=== PATIENT | female | born 1980 ===

== ENCOUNTER 2024-07-29 12:15 | Inpatient (IN) | payer OTHER ==
[~2024-07-29] VITALS: Ht 154.9 cm; Wt 68.0 kg
[2024-08-07] MEDS ORDERED: CEFOXITIN SODIUM 2,000 MG VIAL IV ONE (11:00)
[2024-08-07] MEDS ORDERED: SIMETHICONE 125 MG CAPSULE PO SCH (11:53)
[2024-08-07] MEDS ORDERED: RINGERS SOLUTION,LACTATED 1,000 ML IV SCH (12:00)
[2024-08-07] MEDS ORDERED: PROMETHAZINE HCL 50 MG/ML AMPUL IV SCH (12:00)
[2024-08-07] MEDS ORDERED: MEPERIDINE HCL/PF 50 MG/ML VIAL IV SCH (12:00)
[2024-08-07] MEDS ORDERED: MORPHINE SULFATE 4 MG/ML VIAL IV ONE ×2 (12:05→15:00)
[2024-08-07] MEDS ORDERED: ENOXAPARIN SODIUM 40 MG/0.4 ML SYRINGE SUBCUTANEO NR (12:20)
[2024-08-07 15:01] LABS: HEMOGLOBIN 12.9 g/dL (12.0-15.00); MEAN CELL VOLUME 95.2 fL (80.00-100.00); MEAN CORPUSCULAR HEMOGLOBIN 33.1 pg (27.00-32.0); MEAN CORPUSCULAR HGB CONC 34.8 g/dl (32.0-36.0); PLATELET COUNT 290 K/uL (150-450); RED BLOOD COUNT 3.89 M/uL (4.00-6.00); RED CELL DISTRIBUTION WIDTH 13.1 % (11.5-14.5)
[2024-08-07 16:25] VITALS: BP 115/87; O2SAT 100
[2024-08-07] MEDS ORDERED: PROMETHAZINE HCL 50 MG/ML AMPUL IM SCH (18:00)
[2024-08-08 00:05] VITALS: BP 113/71; O2SAT 95
[2024-08-08 06:44] LABS: HEMATOCRIT 35.9 % (36.0-45.00); HEMOGLOBIN 12.5 g/dL (12.0-15.00); MEAN CELL VOLUME 95.8 fL (80.00-100.00); MEAN CORPUSCULAR HEMOGLOBIN 33.5 pg (27.00-32.0); MEAN CORPUSCULAR HGB CONC 34.9 g/dl (32.0-36.0); PLATELET COUNT 271 K/uL (150-450); RED BLOOD COUNT 3.75 M/uL (4.00-6.00); RED CELL DISTRIBUTION WIDTH 12.8 % (11.5-14.5)
[2024-08-08 07:07] LABS: CALCIUM 8.6 mg/dL (8.5-10.1); CREATININE SERUM 0.49 mg/dL (0.55-1.02); GFR 136.57; MAGNESIUM 1.9 mg/dL (1.8-2.4); POTASSIUM 3.5 mEq/L (3.5-5.1)
[2024-08-08 08:23] VITALS: BP 124/78; O2SAT 99
[2024-08-08] MEDS ORDERED: ONDANSETRON HCL 4 MG in 0.9 % SODIUM CHLORIDE 50 ML IV PRN (08:45)
[2024-08-08] MEDS ORDERED: ENOXAPARIN SODIUM 40 MG/0.4 ML SYRINGE SUBCUTANEO SCH (09:00)
[2024-08-08] MEDS ORDERED: FAMOtidine 20 MG TABLET PO SCH (09:00)
[2024-08-08] MEDS ORDERED: SIMETHICONE 125 MG CAPSULE PO SCH (09:00)
[2024-08-08] MEDS ORDERED: ACETAMINOPHEN WITH CODEINE 1 UDTAB TABLET PO PRN (09:00)
[2024-08-08] MEDS ORDERED: NAPROXEN 500 MG TABLET PO SCH (11:00)
[2024-08-08] MEDS ORDERED: CITRIC ACID/SODIUM CITRATE 30 ML BLIST.PACK PO NR (14:00)
[2024-08-08 15:50] VITALS: BP 131/82; O2SAT 97
[2024-08-08 23:58] VITALS: BP 105/69; O2SAT 99
[2024-08-09 08:31] VITALS: BP 106/67; O2SAT 98
[2024-08-09] MEDS ORDERED: PANTOPRAZOLE SODIUM 40 MG TABLET.DR PO SCH (09:00)
[2024-08-10 00:05] VITALS: BP 104/55; O2SAT 98
[2024-08-10 08:00] VITALS: BP 116/74; O2SAT 97
[2024-08-10] MEDS ORDERED: NAPR500T14 PO (09:10)
[2024-08-10] MEDS ORDERED: Tylenol #3 PO (09:10)
== END 2024-08-10 09:43 | disposition home or self-care (01) | DRG 743 ==
LOC: SURG 08-07 08:32 → O/R 08-07 08:32 → SURG 08-07 12:15
PROVIDERS: Internal Medicine; ADMIT Obstetrics & Gynecology; ATTEND Obstetrics & Gynecology
PROC: 0UT70ZZ Resection of Bilateral Fallopian Tubes, Open Approach (ICD-10-PCS; 2024-08-07)
PROC: 0TJB8ZZ Inspection of Bladder, Via Natural or Artificial Opening Endoscopic (ICD-10-PCS; 2024-08-07)
PROC: 0UT90ZZ Resection of Uterus, Open Approach (ICD-10-PCS; principal; 2024-08-07 13:00)
DX: D25.1 Intramural leiomyoma of uterus (principal); D25.2 Subserosal leiomyoma of uterus; D25.0 Submucous leiomyoma of uterus; N72 Inflammatory disease of cervix uteri; Z20.822 Contact with and (suspected) exposure to COVID-19; N92.0 Excessive and frequent menstruation with regular cycle